=== PATIENT | female | born 1985 | race Two or more races ===

== ENCOUNTER 2021-01-25 13:39 | Emergency (ER) | payer SELFPAY ==
[~2021-01-25] VITALS: Ht 154.9 cm; Wt 61.6 kg
--- NOTE | 2021-01-25 14:22 | PHYS DOC ---
Past Medical History Past Medical History: No Pertinent History Past Surgical History: No Surgical History Smoking Status: Never Smoker Alcohol Use: None General Adult EDM: Chief Complaint: SWALLOWED FORIEGN BODY HPI: HPI: 35-year-old female with no significant past medical history presents the ED with complaints of foreign body on the left side of her throat and anterior neck that started yesterday while eating soup, believes a chicken bone stuck in her neck. Has been able to tolerate food and drink since (mashed bananas), but it hurts to swallow and feels as if she is going to gag. Pt in ed with boyfriend-(patient consents to his/her/their knowledge and involvement in pts' medical care and he assists with paraguayan translating, translating services offered. Review of Systems: Review of Systems: Constitutional: Denies fever or chills. [] Eyes: Denies change in visual acuity. [] HENT: Denies nasal congestion or sore throat. [] Respiratory: Denies cough or shortness of breath or hemoptysis or stridor or increased work of breathing Cardiovascular: Denies chest pain or edema. [] GI: Denies abdominal pain, nausea, vomiting, bloody stools or diarrhea. [] : Denies dysuria or vaginal bleeding Musculoskeletal: Denies back pain or joint pain. [] Integument: Denies rash or diaphoresis Neurologic: Denies headache, focal weakness or sensory changes. [] Endocrine: Denies polyuria or polydipsia. [] Lymphatic: Denies swollen glands. [] Psychiatric: Denies depression or anxiety. [] Heart Score: C/O Chest Pain: No Risk Factors: Risk Factors: DM, Current or recent (<one month) smoker, HTN, HLP, family h istory of CAD, obesity. Risk Scores: Score 0 - 3: 2.5% MACE over next 6 weeks - Discharge Home Score 4 - 6: 20.3% MACE over next 6 weeks - Admit for Clinical Observation Score 7 - 10: 72.7% MACE over next 6 weeks - Early Invasive Strategies Allergies: Allergies: Allergies Coded Allergies Type Severity Reaction Last Updated Verified No Known Drug Allergies 01/25/21 No Physical Exam: PE: Constitutional: Well developed, well nourished, no acute distress, non-toxic appearance. HENT: Normocephalic, atraumatic, Mallampati 4, uvula midline, no pharyngeal erythema or exudates, no palatal petechiae, minimal/no tonsillar tissue, no submental tenderness, no protruding tongue, Eyes: EOMI, conjunctiva normal, no discharge. Neck: Normal range of motion, supple, no subcutaneous emphysema, no stridor, no nuchal rigidity or meningismus, no bruit, no swelling or brawny neck Cardiovascular: S1/2 present, regular rhythm Lungs & Thorax: Speaking in full sentences, bilateral equal chest rise, no tachypnea or increased work of breathing, bilateral breath sounds, clear with no wheezing rales or crackles Abdomen: soft, no tenderness, Skin: Warm, dry, no erythema, no rash. [] Extremities: No tenderness, no cyanosis, no lower extremity edema Neurologic: Alert and oriented X 3, normal motor function, normal sensory function, no focal deficits noted. [] Psychologic: Affect normal, judgement normal, mood -anxious. Current Patient Data: Vital Signs: Vital Signs Date Time Temp Pulse Resp B/P (MAP) Pulse Ox O2 Delivery O2 Flow Rate FiO2 01/25/21 13:45 98.1 63 18 119/60 (79) 99 Room Air 98.1 EKG: EKG: [] Radiology/Procedures: Radiology/Procedures: []IMAGING REPORT Signed PATIENT: AIDAN OSBORN NACCOUNT: [id number] : 1985 LOCATION: ER AGE: 35 SEX: F EXAM STATUS: REG ER ORD. PHYSICIAN: HECTOR COKER DO REASON: fb left neck, chicken bone? PROCEDURE: NECK SOFT TISSUE XR NECK SOFT TISSUE History: Reason: fb left neck, chicken bone? / Spl. Instructions: / History: Technique: 2 views neck soft tissues Comparison: None. Findings: No radiopaque foreign body. Prevertebral soft tissues unremarkable. Normal alignment of the cervical spine. Disc spaces are well-maintained. Impression: 1. No radiopaque foreign body. Electronically signed by: Aj Jacob DO (01/25/2021 2:38 PM) [facility] DICTATED and SIGNED BY: AJ JACOB DO DATE: 01/25/21 [id number] IMAGING REPORT Signed PATIENT: AIDAN OSBORN NACCOUNT: [id number] : 1985 LOCATION: ER AGE: 35 SEX: F EXAM STATUS: REG ER ORD. PHYSICIAN: HECTOR COKER DO REASON: fb in throat? PROCEDURE: CT SOFT TISSUE NECK WO CONTRST EXAM: CT soft tissue neck without contrast INDICATION: Foreign body in throat COMPARISON: Soft tissue neck radiograph from same day TECHNIQUE: Axial CT imaging through the neck intravenous contrast. Sagittal and coronal reformats were obtained. One or more of the following individualized dose reduction techniques were utilized for this examination: 1. Automated exposure control 2. Adjustment of the mA and/or kV according to patient size 3. Use of iterative reconstruction technique. FINDINGS: The nasopharynx, oropharynx, hypopharynx, and larynx are normal. There is no radiopaque foreign body. No soft tissue mass or fluid collection. The parotid, submandibular, and thyroid glands are normal. There is no lymphadenopathy. Prevertebral soft tissues normal. Visualized intracranial contents, globes orbits, paranasal sinuses and mastoid air cells are normal. No acute osseous abnormality. Cervical spine is normal. Lung apices are clear. IMPRESSION: Normal CT of the neck. No radiopaque foreign body. Electronically signed by: Lacey Monzon MD (01/25/2021 3:54 PM) [id number] DICTATED and SIGNED BY: LACEY MONZON MD DATE: 01/25/21 [id number] Course & Med Decision Making: Course & Med Decision Making Pertinent Labs and Imaging studies reviewed. (See chart for details) Concern for traumatic uvulitis with no signs of oropharyngeal edema, allergic reaction, rash or erythema/signs of infection. Patient very well-appearing, speaking full sentences with no muffled voice, no stridor, protecting her airway. Rapid strep negative. Has no leukocytosis. Does show mild normocytic anemia, no prior for baseline. Will discharge home with strict ED return precautions were given for drooling, spitting, difficulties swallowing secretions, head or neck swelling or stiffness, fever, worsening pain, difficulties breathing or syncope. Encouraged urgent outpatient follow-up with PMD in 24 hours for reevaluation. Life-threatening processes were considered but are low suspicion at this time, given history, physical exam and ED workup. Pt was educated on all prescription medications and adverse effects. All patient's questions were answered and pt was stable at time of discharge. Life/limb-threatening differential includes but is not limited to, aortic dissection/aneurysm, cauda equina syndrome, transverse myelitis, spinal cord/epidural compression syndromes, discitis, spinal stenosis, epidural abscess or hematoma, osteomyelitis, disc herniation, surgical abdomen, stable or unstable fracture, renal/ureteral colic, sepsis, meningitis, musculoskeletal injury, traumatic injury, intraabdominal/retroperitoneal or pelvic bleeding. I spoken with the patient and her caregivers. I explained the patient's condition, diagnoses and treatment plan based on the information available to me at this time. I have answered the patient and her caregiver's questions and addressed any concerns. The patient and her caregivers have a good understanding of patient's diagnosis, condition and treatment plan as can be expected at this point. Vital signs have been stable. Patient's condition is stable and appropriate for discharge from the emergency department. Patient will pursue further outpatient evaluation with primary care physician or other designated or consulting physician as outlined in the discharge instructions. The patient and/or caregivers are agreeable to this plan of care and follow-up instructions have been explained in detail. The patient and/or caregivers have received these instructions in written form and have expressed an understanding of the discharge instructions. The patient and/or caregivers are aware that any significant change of condition or worsening of symptoms should prompt immediate return to this or the closest emergency department or call to 911. Arleth Disclaimer: Arleth Disclaimer: This electronic medical record was generated, in whole or in part, using a voice recognition dictation system. Departure Departure Impression: Primary Impression: Uvulitis Additional Impressions: Odynophagia Sensation of foreign body in throat Normocytic anemia Disposition: 01 HOME / SELF CARE / HOMELESS Condition: STABLE Referrals: NO PCP (PCP) follow up with your primary care physician in 24 to 48 hours for reevaluation & anemia FOLLOW UP WITH FAMILY MEDICINE: [address] [facility] [place] [address] Patient Instructions: Anemia, Nonspecific-Brief, Uvulitis Additional Instructions: FOLLOW UP WITH ENT: For definitive management of uvulitis Otolaryngology [address] [facility], [address] [place] [address] [employer] [facility] [address] [address] EMERGENCY DEPARTMENT GENERAL DISCHARGE INSTRUCTIONS Thank you for coming to [facility] Emergency Department (ED) today and trusting us with you care. We trust that you had a positive experience in our Emergency Department. If you wish to speak to the department management, you may call the Director at [phone]. YOUR FOLLOW UP INSTRUCTIONS ARE FOLLOWS: 1. Do you have a private Doctor? If you do not have a private doctor, please ask for a resource list of physicians or clinics that may be able to assist you with follow up care. 2. The Emergency Physicain has interpreted your x-rays. The X-Ray specialist will also review them. If there is a change in the findings, you will be notified in 48 hours when at all possible. 3. A lab test or culture has been done, your results will be reviewed and you will be notified if you need a change in treatment. ADDITIONAL INSTRUCTIONS AND INFORMATION: 1. Your care today has been supervised by a physician who is specially trained in emergency care. Many problems require more than one evaluation for a complete diagnosis and treatment. We recommend that you schedule your follow up appointment as recommended to ensure complete treatment of you illness or injury. If you are unable to obtain follow up care and continue to have a problem, or if your condition worsens, we recommend that you return to the ED. 2. We are not able to safely determine your condition over the phone nor are we able to give sound medical advice over the phone. For these safety reasons, if you call for medical advice we will ask you to come to the ED for further evaluation. 3. If you have any questions regarding these discharge instructions please call the ED at [phone]. SAFETY INFORMATION: In the interest of safety, wellness, and injury prevention; we encourage you to wear your sealbelt, if you smoke; quite smoking, and we encourage family to use a prot ective helmet for bicycling and other sporting events that present an increased risk for head injury. IF YOUR SYMPTOMS WORSEN OR NEW SYMPTOMS DEVELOP, OR YOU HAVE CONCERNS ABOUT YOUR CONDITION; OR IF YOUR CONDITION WORSENS WHILE YOU ARE WAITING FOR YOUR FOLLOW UP APPOINTMENT; EITHER CONTACT YOUR PRIMARY CARE DOCTOR, THE PHYSICIAN WHOSE NAME AND NUMBER YOU WERE GIVEN, OR RETURN TO THE ED IMMEDIATELY. Scripts Benzocaine/Menthol (CEPACOL SORE THROAT LOZENGE) 1 Each Lozenge 1 TAB PO Q4HRS for sore throat for 3 Days, #18 TAB 0 Refills Prov: HECTOR COKER DO 01/25/21 Methylprednisolone (MEDROL) 4 Mg Tab.ds.pk 1 PKG PO UD for inflammation, #1 PKG Prov: HECTOR COKER DO 01/25/21 HECTOR COKER DO January 25, 2021 14:22
--- NOTE | 2021-01-25 14:40 | RAD ---
XR NECK SOFT TISSUE History: Reason: fb left neck, chicken bone? / Spl. Instructions: / History: Technique: 2 views neck soft tissues Comparison: None. Findings: No radiopaque foreign body. Prevertebral soft tissues unremarkable. Normal alignment of the cervical spine. Disc spaces are well-maintained. Impression: 1. No radiopaque foreign body. Electronically signed by: Aj Jacob DO (01/25/2021 2:38 PM) [facility]
--- NOTE | 2021-01-25 15:56 | RAD ---
EXAM: CT soft tissue neck without contrast INDICATION: Foreign body in throat COMPARISON: Soft tissue neck radiograph from same day TECHNIQUE: Axial CT imaging through the neck intravenous contrast. Sagittal and coronal reformats wer e obtained. One or more of the following individualized dose reduction techniques were utilized for this examinat ion: 1. Automated exposure control 2. Adjustment of the mA and/or kV according to patient size 3. Use of iterative reconstruction technique. FINDINGS: The nasopharynx, oropharynx, hypopharynx, and larynx are normal. There is no radiopaque foreign body. No soft tissue mass or fluid collection. The parotid, submandibular, and thyroid glands are normal. There is no lymphadenopathy. Prevertebral soft tissues normal. Visualized intracranial contents, glob es orbits, paranasal sinuses and mastoid air cells are normal. No acute osseous abnormality. Cervical spine is normal. Lung apices are clear. IMPRESSION: Normal CT of the neck. No radiopaque foreign body. Electronically signed by: Lacey Monzon MD (01/25/2021 3:54 PM) [id number]
[2021-01-25 16:17] LABS: BASO # 0.1 x10^3/uL (0.0-0.2); BASO % 1 % (0-3); EOS # 0.1 x10^3/uL (0.0-0.7); EOS % 1 % (0-3); HEMATOCRIT 33.2 % (36.0-47.0); HEMOGLOBIN 10.7 g/dL (12.0-15.5); LYMPH # 1.8 x10^3/uL (1.0-4.8); LYMPH % 25 % (24-48); MEAN CORPUSCULAR HEMOGLOBIN 26 pg (25-35); MEAN CORPUSCULAR HGB CONC 32 g/dL (31-37); MEAN CORPUSCULAR VOLUME 82 fL (79-100); MONO # 0.3 x10^3/uL (0.0-1.1); MONO % 4 % (0-9); NEUT # 4.9 x10^3/uL (1.8-7.7); NEUT % 69 % (31-73); PLATELET COUNT 265 x10^3/uL (140-400); RED BLOOD COUNT 4.07 x10^6/uL (3.50-5.40); RED CELL DISTRIBUTION WIDTH 15.9 % (11.5-14.5); WHITE BLOOD COUNT 7.1 x10^3/uL (4.0-11.0)
[2021-01-25 16:21] LABS: CALCIUM 8.4 mg/dL (8.5-10.1); CREATININE 0.7 mg/dL (0.6-1.0); GFR 94.7; POTASSIUM 3.8 mmol/L (3.5-5.1)
[2021-01-25 16:37] LABS: PREG TEST PT QUAL NEGATIVE (NEG)
[2021-01-25] MEDS ORDERED: BENZOCAINE/MENTHOL LOZENGE. PO PRN (17:00)
[2021-01-25] MEDS ORDERED: DEXAMETHASONE 4 MG TABLET PO ONE (17:00)
[2021-01-25] MEDS ORDERED: BENZ1LOZ48 PO (17:56)
[2021-01-25] MEDS ORDERED: METH4TAB2 PO (17:56)
[2021-01-25 18:10] VITALS: BP 108/57
== END 2021-01-25 18:15 | disposition home or self-care (01) ==
LOC: ER 13:39
DX: K12.2 Cellulitis and abscess of mouth (principal); R13.10 Dysphagia, unspecified; D64.9 Anemia, unspecified; R09.89 Other specified symptoms and signs involving the circulatory and respiratory systems
CPT/HCPCS: 36415; 70360; 70490; 80048; 84703; 85025; 87070; 87880; 99285-25